=== PATIENT | female | born 1995 | race Caucasian/White ===

== ENCOUNTER 2021-01-20 21:23 | Emergency (ER) | payer OTHER ==
[~2021-01-20] VITALS: Ht 160 cm; Wt 102.1 kg
[2021-01-20 21:27] VITALS: BP 145/96
--- NOTE | 2021-01-20 21:32 | NUR ---
patient ambulated to [facility]
--- NOTE | 2021-01-20 22:09 | NUR ---
PT TAKEN TO BED 10
--- NOTE | 2021-01-20 22:21 | NUR ---
Dr. Barr examining patient.
[2021-01-20] MEDS ORDERED: LIDOCAINE MPF 1% 10 MG/ML VIAL INJ ONE (22:25)
[2021-01-20] MEDS ORDERED: LIDOCAINE MPF 1% 5 ML ONE (22:25)
[2021-01-20 23:10] VITALS: BP 145/96
--- NOTE | 2021-01-20 23:23 | NUR ---
Patient discharged with v/s stable. Written and verbal after care instructions given and explained. Patient verbalized understanding. Ambulatory with steady gait. ARM BAND REMOVED All questions addressed prior to discharge. Advised to follow up with PMD.
== END 2021-01-20 23:23 | disposition home or self-care (01) ==
LOC: MED 21:23
DX: S00.551A Superficial foreign body of lip, initial encounter (principal); F12.90 Cannabis use, unspecified, uncomplicated; X58.XXXA Exposure to other specified factors, initial encounter; Y93.89 Activity, other specified; Y92.89 Other specified places as the place of occurrence of the external cause; Y99.8 Other external cause status
CPT/HCPCS: 99284; J2001